=== PATIENT | male | born 1990 | race Caucasian/White ===

== ENCOUNTER 2018-07-31 11:05 | Outpatient (CLI) | payer OTHER ==
--- NOTE | 2018-07-31 12:36 | RAD ---
CERVICAL SPINE RADIOGRAPH SERIES 4 VIEWS: INDICATION: Cervical pain. FINDINGS: Spinal alignment is maintained. Vertebral body heights are preserved. There is osseous irregularity at the C6 spinous process with mild inferior displacement of the posterior aspect of the spinous pro cess. Lateral masses of C1 are appropriately aligned. The imaged dens is intact. Prevertebral soft tissues are normal in caliber. IMPRESSION: Fracture deformity with mild displacement of the C6 spinous process. POS: [facility]
== END 2018-07-31 11:06 | disposition home or self-care (01) ==
LOC: TBSIIMAG 11:05
PROVIDERS: ATTEND Neurological Surgery
DX: M54.2 Cervicalgia (principal); M50.222 Other cervical disc displacement at C5-C6 level
CPT/HCPCS: 72040

== ENCOUNTER 2020-03-26 21:43 | Emergency (ER) | payer SELFPAY ==
[~2020-03-26 21:43] MED LIST: Iopamidol 370 76% 100 ML VIAL ONE
[2020-03-26] MEDS ORDERED: Lidocaine 1% w/Epinephrine 1:100K 20 ML VIAL ONE (22:08)
[2020-03-26 22:21] LABS: #Eosinphils 0.1 thou/uL (0.0-0.7); #Lymphocytes 1.4 thou/uL (1.20-3.40); #Monocytes 0.5 thou/uL (0.11-0.59); #Neutrophils 3.3 thou/uL (1.40-6.50); %Basophils 0.8 % (0.0-1.0); %Eosinophils 1.2 % (0.0-10.0); %Lymphocytes 26.4 % (21.0-51.0); %Monocytes 9.8 % (0.0-10.0); %Neutrophils 61.8 % (42.0-75.0); Hemoglobin 15.5 g/dL (14.0-18.0); Mean Corpuscular HGB CONC 34.4 g/dL (32.0-36.0); Mean Corpuscular Hemoglobin 31.2 pg (27.0-31.0); Mean Corpuscular Volume 90.8 fL (78.0-98.0); Mean Platelet Volume 7.9 fL (7.4-10.4); Platelet Count 179 thou/uL (130-400); RBC Distribution Width 12.1 % (11.5-14.5); Red Blood Cell (RBC) Count 4.98 mill/uL (4.70-6.10); White Blood Cell (WBC) Count 5.4 thou/uL (4.8-10.8)
[2020-03-26 22:39] LABS: Alcohol 324 mg/dL (Less than 10); Anion Gap 15 mmol/L (10-20); BUN (Urea Nitrogen) 11 mg/dL (8.9-20.6); Calc. Creatinine Clearance 0 mL/min (70-130); Calcium 9.1 mg/dL (7.8-10.44); Carbon Dioxide 22 mmol/L (22-29); Chloride 101 mmol/L (98-107); Estimated GFR-MDRD 86; Glucose 124 mg/dL (70-105); Potassium 3.4 mmol/L (3.5-5.1); Sodium 135 mmol/L (136-145)
[2020-03-26] MEDS ORDERED: Bacitracin 1 PK ONE (22:46)
--- NOTE | 2020-03-26 23:48 | CT ---
HEAD CT WITHOUT CONTRAST: Date: 03/26/2020 COMPARISON: None. HISTORY: Injury, trauma, pain. TECHNIQUE: Axial CT imaging at 5 mm intervals from vertex through skull base without contrast. FINDINGS: The visualized paranasal sinuses and mastoid air cells are well aerated. There is no displaced calvar ial fracture, intracranial hemorrhage, midline shift, or mass effect. Mild soft tissue swelling is se en in the infraorbital region on the right. IMPRESSION: No intracranial hemorrhage or displaced calvarial fracture. Results called to Dr. Joyce at 2235 hours on 03/26/2020. CODE CR. POS: [facility]
--- NOTE | 2020-03-26 23:50 | CT ---
CERVICAL SPINE CT: Date: 03/26/2020 COMPARISON: None. HISTORY: Injury, trauma, pain. TECHNIQUE: Axial CT imaging at 2.5 mm intervals through the cervical spine with coronal and sagittal reformatted imaging. FINDINGS: The imaged lung apices are unremarkable. There is straightening of the normal cervical lordosis. The craniocervical junction, atlantoaxial interspace, cervicothoracic junction, occipital condyles, dens, and C1-2 articulation appear within normal limits. No displaced cervical spine fracture or evidence of dislocation. IMPRESSION: No acute osseous abnormality. Results called to Dr. Joyce at 2235 hours on 03/26/2020. CODE CR.
--- NOTE | 2020-03-27 00:04 | CT ---
CT CHEST AND ABDOMEN AND PELVIS AND THORACIC SPINE AND LUMBAR SPINE Date: 03/26/2020 COMPARISON: None. HISTORY: Injury, trauma. TECHNIQUE: Axial Ct imaging at 5 mm intervals from thoracic inlet through pubic symphysis with IV contrast. Christo nal and sagittal reformatted imaging. FINDINGS: No hilar, mediastinal, or axillary lymphadenopathy. No pleural, pericardial, or mediastinal fluid. No pneumothorax. The lung parenchyma appears unremarkable. The extraspinal osseous structures of the ch est demonstrate no acute findings. The vascular structures of the chest appear patent. No free intraperitoneal air or fluid is seen. The liver, gallbladder, spleen, pancreas, adrenal glands, and kidneys demonstrate no acute findings. Limited assessment of the bowel appears unremarkable. The vascular structures of the abdomen and pelvis appear unremarkable. There is a small sliding-type hiatal hernia. No lymphadenopathy is appreciated within the abdomen or pelvis. The inferior and superior pubic rami appear unremarkable. There is no evidence for fracture or disloc ation involving the visualized aspects of the proximal femora/hips. No evidence for a sacral fracture . No evidence for fracture or dislocation is seen involving the thoracic or lumbar spine. IMPRESSION: No acute findings within the chest, abdomen, pelvis, thoracic spine, or lumbar spine. Results called to Dr. Joyce at 2242 hours on 03/26/2020. CODE CR. POS: [facility]
--- NOTE | 2020-03-27 00:25 | RAD ---
2 VIEWS LEFT FOREARM: Date: 03/26/2020 COMPARISON: None. HISTORY: Injury, trauma, pain. FINDINGS: There is a prominent soft tissue injury measuring at least 9.0 cm in length associated with the skin and subcutaneous soft tissues adjacent to the proximal aspect of the left radius extending into the r egion of the radial head. On the oblique and lateral views, there are small radiodensities measuring up to 6-7 mm anterior to the radial head, which could represent small foreign bodies or potentially s mall fracture fragments, donor site uncertain. No evidence for dislocation. IMPRESSION: Severe soft tissue injury of the proximal forearm laterally. Subcentimeter radiodensities anterior to the radial head on the lateral view as above. POS: [facility]
== END 2020-03-27 00:54 | disposition home or self-care (01) ==
LOC: ERS 21:43
DX: S51.812A Laceration without foreign body of left forearm, initial encounter (principal); S00.81XA Abrasion of other part of head, initial encounter; F10.129 Alcohol abuse with intoxication, unspecified; Y90.8 Blood alcohol level of 240 mg/100 ml or more; V89.2XXA Person injured in unspecified motor-vehicle accident, traffic, initial encounter
CPT/HCPCS: 12005; 70450; 71260; 72125; 74177; 80048; 80307; 85025; 96365; J0690; Q9967

== ENCOUNTER 2023-10-18 21:32 | Emergency (ER) | payer SELFPAY ==
[2023-10-18 22:10] LABS: #Basophils 0.1 thou/uL (0.0-0.2); #Monocytes 0.6 thou/uL (0.11-0.59); #Neutrophils 3.1 thou/uL (1.40-6.50); %Eosinophils 0.6 % (0.0-10.0); %Lymphocytes 20.3 % (21.0-51.0); %Monocytes 12.8 % (0.0-10.0); %Neutrophils 64.7 % (42.0-75.0); Hemoglobin 15.7 g/dL (14.0-18.0); Mean Corpuscular HGB CONC 34.9 g/dL (32.0-36.0); Mean Corpuscular Hemoglobin 32.4 pg (27.0-31.0); Mean Platelet Volume 9.4 fL (7.4-10.4); Platelet Count 160 10x3/uL (130-400); RBC Distribution Width 11.9 % (11.5-14.5); Red Blood Cell (RBC) Count 4.84 mill/uL (4.70-6.10); White Blood Cell (WBC) Count 4.8 10x3/uL (4.8-10.8)
[2023-10-18 22:32] LABS: ALT (SGPT) 51 U/L (8-55); AST (SGOT) 57 U/L (5-34); Albumin 4.5 g/dL (3.5-5.0); Alkaline Phosphatase 124 U/L (40-110); Anion Gap 16 mmol/L (10-20); BUN (Urea Nitrogen) 8 mg/dL (8.9-20.6); Bilirubin, Total 1.1 mg/dL (0.2-1.2); Calc. Creatinine Clearance 0 mL/min (70-130); Calcium 9.4 mg/dL (7.8-10.44); Carbon Dioxide 21 mmol/L (22-29); Chloride 105 mmol/L (98-107); Estimated GFR 116; Globulin 2.9 g/dL (2.4-3.5); Glucose 107 mg/dL (70-105); Potassium 3.6 mmol/L (3.5-5.1); Protein, Total 7.4 g/dL (6.0-8.3); Sodium 138 mmol/L (136-145)
[2023-10-18] MEDS ORDERED: Glucagon 1 MG/ML KIT ONE (22:37)
== END 2023-10-18 23:52 | disposition home or self-care (01) ==
LOC: ERS 21:32
DX: K22.2 Esophageal obstruction (principal); K21.00 Gastro-esophageal reflux disease with esophagitis, without bleeding
CPT/HCPCS: 71045; 80053; 85025; 96374; J1611